=== PATIENT | male | born 1945 | race Caucasian/White ===

== ENCOUNTER 2018-06-09 06:49 | Day surgery (SDC) | payer MEDICARE ==
[~2018-06-09] VITALS: Ht 180.3 cm; Wt 76.7 kg
[~2018-06-09 06:49] MED LIST: ADULT ASPIRIN E81 MG PO; ALLERGY RELF PO; ALLERGY25 M1 PO; CIPROFLOXACN500 MG PO; EQ ANTACID PO; EQL IBUPROFEN200 MG PO; FLOMAX0.4 M1 PO; LOPID600 MG PO; MULTI VIT PO; PRILOSEC40 MG PO; PROSCAR5 MG PO; RESTASIS0.05 % OP; SIMVASTATIN20 MG PO; SLEEP AID25 M1 PO; TAMSULOSIN HCL0.4 MG PO; URINOZINC PO
[2018-06-09 09:33] VITALS: BP 123/65
== END 2018-06-09 10:12 | disposition home or self-care (01) ==
LOC: ENDO 06:49 → ORM 08:30 → ENDO 10:12
PROVIDERS: ATTEND Surgery
PROC: 0DBH8ZX Excision of Cecum, Via Natural or Artificial Opening Endoscopic, Diagnostic (ICD-10-PCS; principal; 2018-06-09)
PROC: 0DBP8ZX Excision of Rectum, Via Natural or Artificial Opening Endoscopic, Diagnostic (ICD-10-PCS; 2018-06-09)
DX: K57.31 Diverticulosis of large intestine without perforation or abscess with bleeding (principal); D12.8 Benign neoplasm of rectum; D12.0 Benign neoplasm of cecum; Q43.8 Other specified congenital malformations of intestine; K64.8 Other hemorrhoids; I25.10 Atherosclerotic heart disease of native coronary artery without angina pectoris; I10 Essential (primary) hypertension; E78.00 Pure hypercholesterolemia, unspecified; Z86.010 Personal history of colon polyps

== ENCOUNTER 2019-03-29 16:54 | Emergency (ER) | payer MEDICARE ==
[~2019-03-29] VITALS: Ht 180.3 cm; Wt 80.0 kg
[2019-03-29] MEDS ORDERED: ULTRAM50 M1 PO (20:59)
[2019-03-29 21:34] VITALS: BP 140/70
== END 2019-03-29 21:34 | disposition home or self-care (01) ==
LOC: ED 16:54
DX: M11.261 Other chondrocalcinosis, right knee (principal); M79.604 Pain in right leg

== ENCOUNTER 2019-04-29 | Emergency (ER) | payer MEDICARE ==
[~2019-04-29] MED LIST changes: +ULTRAM50 M1 PO
[2019-04-29 17:28] LABS: HEMATOCRIT 36.2 % (39.0-50.0); MEAN CELL VOLUME 85.4 fL CALC (80.0-100.0); MEAN CORPUSCULAR HGB 28.3 pG CALC (26.0-32.0); MEAN CORPUSCULAR HGB CONC 33.1 g/L CALC (32.0-36.0); NEUT# 5.45 thou/uL (1.82-7.42); RED BLOOD COUNT 4.24 mill/uL (4.70-6.10); RED CELL DISTRI WIDTH 12.1 % (11.5-15.5)
[2019-04-29] MEDS ORDERED: OMEPRAZOLE DR40 MG PO (17:30)
[2019-04-29] MEDS ORDERED: NEURONTIN300 MG PO (17:30)
[2019-04-29] MEDS ORDERED: NAPROXEN500 MG PO (17:31)
[2019-04-29] MEDS ORDERED: ASPIRIN 8181 MG PO (17:33)
[2019-04-29 17:49] LABS: ALKALINE PHOSPHATASE 81 u/l (38-126); ANION GAP 13 (6-22 (CALC)); BILIRUBIN, TOTAL 0.4 mg/dL (0.0-1.4); BUN 12 mg/dL (8-23); BUN/CREATININE RATIO 14 (12-20 (CALC)); CARBON DIOXIDE 28 mmol/l (22-30); CHLORIDE 98 mmol/l (95-108); CREATININE 0.8 mg/dL (0.7-1.3); GFR > 60 ML/MIN (>=60 (CALC)); GFR FOR AFR.AMER. > 60 ML/MIN (>=60 (CALC)); MAGNESIUM 1.8 mg/dL (1.6-2.3); POTASSIUM 3.9 mmol/l (3.5-5.1); SGOT/AST 46 u/l (19-48); SODIUM 135 mmol/l (137-146); TOTAL PROTEIN 7.6 g/dL (6.3-8.2)
[2019-04-29 19:27] LABS: URINE BILIRUBIN - DIPSTICK NEGATIVE (NEGATIVE); URINE BLOOD DIPSTICK NEGATIVE (NEGATIVE); URINE COLOR YELLOW; URINE GLUCOSE - DIPSTICK NEGATIVE (NEGATIVE); URINE KETONE NEGATIVE (NEGATIVE); URINE LEUK ESTERASE NEGATIVE (NEGATIVE); URINE NITRITE - DIPSTICK NEGATIVE (Negative); URINE PROTEIN - DIPSTICK NEGATIVE (NEG-TRACE); URINE SPECIFIC GRAVITY <=1.005; URINE UROBILINOGEN - DIPSTICK 0.2 E.U./dL (0.2)
== END 2019-04-29 20:36 | disposition home or self-care (01) ==
DX: G62.9 Polyneuropathy, unspecified (principal)

== ENCOUNTER 2022-10-31 19:45 | Emergency (ER) | payer MEDICARE, MEDICAID ==
[~2022-10-31] VITALS: Ht 180.3 cm; Wt 87.0 kg
[~2022-10-31 19:45] MED LIST changes: +ASPIRIN 8181 MG PO; +NAPROXEN500 MG PO; +NEURONTIN300 MG PO; +OMEPRAZOLE DR40 MG PO
[2022-10-31] MEDS ORDERED: EMETROL (20:02)
[2022-10-31] MEDS ORDERED: TOPROL XL50 MG PO (20:02)
[2022-10-31] MEDS ORDERED: FAMOTIDINE20 M1 PO (20:03)
[2022-10-31] MEDS ORDERED: LIPITOR20 M1 PO (20:03)
[2022-10-31 20:28] LABS: BASO% 0.7 % (0-3); EOS% 0.5 % (0-8); IMMATURE GRANULOCYTES 0.4 % (0.0-5.0); LYMPH% 6.1 % (15-41); MEAN CELL VOLUME 88.4 fL CALC (80.0-100.0); MEAN CORPUSCULAR HGB 29.2 pG CALC (26.0-32.0); MONO% 8.3 % (2-13); NEUT# 6.34 thou/uL (1.82-7.42); RED BLOOD COUNT 4.83 mill/uL (4.70-6.10)
[2022-10-31 20:29] LABS: HEMATOCRIT 42.7 % (39.0-50.0); HEMOGLOBIN 14.1 g/dl (14.0-18.0)
[2022-10-31 20:39] LABS: ALKALINE PHOSPHATASE 64 u/l (38-126); AMYLASE 41 u/l (30-110); BUN 10 mg/dL (8-23); BUN/CREATININE RATIO 7 (12-20 (CALC)); CHLORIDE 103 mmol/l (95-108); CREATININE 1.3 mg/dL (0.7-1.3); GFR FOR AFR.AMER. > 60 ML/MIN (>=60 (CALC)); GFR OTHER RACES 54 ML/MIN (>=60 (CALC)); POTASSIUM 4.3 mmol/l (3.5-5.1); SGOT/AST 26 u/l (19-48); SODIUM 135 mmol/l (137-146); TOTAL PROTEIN 6.8 g/dL (6.3-8.2)
[2022-10-31 20:43] LABS: ANION GAP 14 (6-22 (CALC)); BILIRUBIN, TOTAL 0.8 mg/dL (0.2-1.3); CARBON DIOXIDE 22 mmol/l (22-30)
[2022-10-31] MEDS ORDERED: ONDANSETRON4 MG PO (20:50)
[2022-10-31 21:19] VITALS: BP 132/79
== END 2022-10-31 21:45 | disposition home or self-care (01) ==
LOC: ED 19:45
PROVIDERS: Family Medicine
DX: K59.00 Constipation, unspecified (principal); R11.0 Nausea; B02.9 Zoster without complications; K21.9 Gastro-esophageal reflux disease without esophagitis; E78.00 Pure hypercholesterolemia, unspecified; N40.0 Benign prostatic hyperplasia without lower urinary tract symptoms